=== PATIENT | female | born 1940 | race Caucasian/White ===

== ENCOUNTER → 2020-08-02 | Outpatient (CLI) | payer OTHER ==
[~2020-08-02] MED LIST: ACET325 PO; ALEN70 PO; ASPI81CH PO; ATOR40TA PO; Amlodipine Besyl5 MG PO; BENA20 PO; CALCIUM; CLOP75 PO; CODACE30 PO; DOCU100 PO; ERGO50000; HYDCHL25 PO; Metoprolol Tart25 MG PO; NABU500 PO; WARF2 PO
== END | disposition home or self-care (01) ==
LOC: LAB SHORT 13:52 → LAB 13:52
DX: D48.5 Neoplasm of uncertain behavior of skin (principal)
CPT/HCPCS: 88305

== ENCOUNTER → 2020-11-07 | Outpatient (CLI) | payer OTHER | LOC: LAB SHORT 15:54 → LAB 15:54 | DX: D48.5 Neoplasm of uncertain behavior of skin (principal) | CPT/HCPCS: 88305 ==

== ENCOUNTER 2021-02-28 18:28 | Inpatient (IN) | payer OTHER ==
[~2021-02-28] VITALS: Ht 157.5 cm; Wt 112.7 kg
[~2021-02-28 18:28] MED LIST changes: -Coumadin2 MG PO; -ELIQUIS2.5 MG PO; -EUTHYROX50 MC1 PO; -METOPROLOL SUCC25 MG PO; -VITAMIN B125000 MC1 PO; -VITAMIN D310 MC4 PO
[2021-02-28] MEDS ORDERED: EUTHYROX50 MC1 PO (18:40)
[2021-02-28 19:12] LABS: BASOPHILS ABSOLUTE AUTO 0.03 K/mm3 (0.00-0.23); BASOPHILS PERCENT AUTO 0 % (0-2); EOSINOPHILS ABSOLUTE AUTO 0.06 K/mm3 (0.00-0.68); EOSINOPHILS PERCENT AUTO 1 % (0-6); Hematocrit 38.1 % (33.0-51.0); Hemoglobin 12.3 g/dL (11.5-16.0); IMMATURE GRAN ABSOLUTE AUTO 0.03 K/mm3 (0.00-0.10); IMMATURE GRAN PERCENT AUTO 0 % (0-1); LYMPHOCYTES ABSOLUTE AUTO 1.22 K/mm3 (0.84-5.20); LYMPHOCYTES PERCENT AUTO 15 % (21-46); MONOCYTES ABSOLUTE AUTO 0.66 K/mm3 (0.16-1.47); MONOCYTES PERCENT AUTO 8 % (4-13); Mean Corpuscular HGB 31.4 pg (26.0-34.0); Mean Corpuscular HGB Conc 32.3 g/dL (31.5-36.5); Mean Corpuscular Volume 97 fL (80-100); Mean Platelet Volume 11.1 fL (9.1-12.4); NEUTROPHILS ABSOLUTE AUTO 6.01 K/mm3 (1.96-9.15); NEUTROPHILS PERCENT AUTO 75 % (41-73); Platelet Count 242 K/mm3 (150-400); RDW Coefficient Variation 15.2 % (11.7-14.2); RDW Standard Deviation 54.5 fL (35.1-46.3); Red Blood Cell Count 3.92 M/mm3 (3.80-5.20); White Blood Cell Count 8.01 K/mm3 (4.00-11.30)
[2021-02-28 19:28] LABS: International Normalized Ratio 2.88; Prothrombin Time Results 29.3 Sec (9.7-11.5)
[2021-02-28 19:56] LABS: SARS-Cov-2 (COVID-19) PCR, MMC NEGATIVE (NEGATIVE)
[2021-02-28] MEDS ORDERED: METOPROLOL SUCC25 MG PO (20:38)
[2021-02-28 20:41] LABS: Anion Gap 11 mmol/L (6-16); Blood Urea Nitrogen 22 mg/dL (8-24); Bun/Creatinine Ratio 19.3 (12.0-20.0); CO2, Blood 21 mmol/L (21-32); Chloride, Blood 110 mmol/L (98-108); Creatinine, Blood 1.14 mg/dL (0.40-1.00); Free Thyroxine 1.51 ng/dL (0.70-1.60); Glomerular Filtration Rate 46 (60-); Glucose, Blood 92 mg/dL (70-99); Magnesium, Blood 1.9 mg/dL (1.6-2.4); Potassium, Blood 4.3 mmol/L (3.5-5.5); Sodium, Blood 142 mmol/L (136-145); Troponin I <0.015 ng/mL (0.000-0.040)
[2021-02-28 20:43] LABS: Triiodothyronine, Free 1.91 pg/mL (2.18-3.98)
[2021-02-28] MEDS ORDERED: Coumadin2 MG PO (21:02)
[2021-02-28] MEDS ORDERED: VITAMIN D310 MC4 PO (23:20)
[2021-02-28] MEDS ORDERED: VITAMIN B125000 MC1 PO (23:20)
[2021-03-01 05:26] LABS: BASOPHILS ABSOLUTE AUTO 0.02 K/mm3 (0.00-0.23); BASOPHILS PERCENT AUTO 0 % (0-2); EOSINOPHILS ABSOLUTE AUTO 0.08 K/mm3 (0.00-0.68); EOSINOPHILS PERCENT AUTO 1 % (0-6); Hematocrit 33.7 % (33.0-51.0); Hemoglobin 10.9 g/dL (11.5-16.0); IMMATURE GRAN ABSOLUTE AUTO 0.02 K/mm3 (0.00-0.10); IMMATURE GRAN PERCENT AUTO 0 % (0-1); LYMPHOCYTES ABSOLUTE AUTO 1.42 K/mm3 (0.84-5.20); LYMPHOCYTES PERCENT AUTO 23 % (21-46); MONOCYTES ABSOLUTE AUTO 0.56 K/mm3 (0.16-1.47); MONOCYTES PERCENT AUTO 9 % (4-13); Mean Corpuscular HGB 31.5 pg (26.0-34.0); Mean Corpuscular HGB Conc 32.3 g/dL (31.5-36.5); Mean Corpuscular Volume 97 fL (80-100); Mean Platelet Volume 11.6 fL (9.1-12.4); NEUTROPHILS ABSOLUTE AUTO 3.97 K/mm3 (1.96-9.15); NEUTROPHILS PERCENT AUTO 66 % (41-73); Platelet Count 238 K/mm3 (150-400); RDW Coefficient Variation 15.3 % (11.7-14.2); RDW Standard Deviation 55.2 fL (35.1-46.3); Red Blood Cell Count 3.46 M/mm3 (3.80-5.20); White Blood Cell Count 6.07 K/mm3 (4.00-11.30)
--- NOTE | 2021-03-01 05:43 | NUR ---
SHIFT SUMMARY ASSUMED CARE OF PT AT 2300 FROM ED. PT IS A/OX4. HEART SOUNDS BABATUNDE, PT TELE RUNNING SINUS BABATUNDE @ 30. PT DIPPED DOWN TO 25 BPM, PT WAS ASYMPTOMATIC. LUNG SOUNDS HAVE CRACKLES AT THE BASES. PT WAS STRICTLY BEDREST T/O THE SHIFT. PT NPO AT MIDNIGHT FOR PROCEDURE IN AM. NEW POWEGLIDE PLACED. CALL LIGHT IN REACH, BED IN LOWEST POSTION.
[2021-03-01 05:49] LABS: International Normalized Ratio 3.12; Prothrombin Time Results 31.6 Sec (9.7-11.5)
[2021-03-01 05:57] LABS: Alanine Aminotransfer (ALT/SGP 24 U/L (12-78); Albumin/Globulin Ratio 0.9 (0.8-1.8); Alk Phos 75 U/L (50-136); Anion Gap 8 mmol/L (6-16); Aspartate Aminotrans (AST/SGOT 29 U/L (12-37); Bilirubin, Total 0.4 mg/dL (0.1-1.0); Blood Urea Nitrogen 21 mg/dL (8-24); Bun/Creatinine Ratio 17.4 (12.0-20.0); CO2, Blood 25 mmol/L (21-32); Calcium, Blood 8.8 mg/dL (8.5-10.1); Chloride, Blood 110 mmol/L (98-108); Creatinine, Blood 1.21 mg/dL (0.40-1.00); Globulin, Blood 3.2 g/dL (2.2-4.0); Glomerular Filtration Rate 43 (60-); Glucose, Blood 86 mg/dL (70-99); Sodium, Blood 143 mmol/L (136-145); Total Protein, Blood 6.2 g/dL (6.4-8.2); Troponin I <0.015 ng/mL (0.000-0.040)
--- NOTE | 2021-03-01 10:47 | NUR ---
Dr. Chase here to round on pt. Zoll monitor at the bedside. Zoll patches will be applied on pt until she can have her pacemaker surgery completed.
[2021-03-01 13:46] LABS: International Normalized Ratio 2.63
[2021-03-01 14:13] LABS: Prothrombin Time Results 26.9 Sec (9.7-11.5)
--- NOTE | 2021-03-01 18:08 | NUR ---
PT PLEASANT TODAY. SHE WAS POSTPONED TO TOMORROW ANDERS AM FOR PACER . CONTINUES TO BE AT BABATUNDE AROUND 30 BPM. DENIES SYMPTOMS. WE HAVE NOT GOTTEN HER UP EVEN FOR BATHROOM TODAY. ZOLE PATCH PADS IN PLACE FOR EMERGENCY. SHE HAS BEEN TALKING ON FLOOR. NO NEW CONCRNS NOTED. INR SLOWLY COMING DOWN. BED IN LOW POSITION, CALL LITE IN REACH, CALLS APPROP
[2021-03-02 04:50] LABS: BASOPHILS ABSOLUTE AUTO 0.03 K/mm3 (0.00-0.23); BASOPHILS PERCENT AUTO 1 % (0-2); EOSINOPHILS ABSOLUTE AUTO 0.11 K/mm3 (0.00-0.68); EOSINOPHILS PERCENT AUTO 2 % (0-6); Hematocrit 33.1 % (33.0-51.0); Hemoglobin 10.7 g/dL (11.5-16.0); IMMATURE GRAN ABSOLUTE AUTO 0.02 K/mm3 (0.00-0.10); IMMATURE GRAN PERCENT AUTO 0 % (0-1); LYMPHOCYTES ABSOLUTE AUTO 1.23 K/mm3 (0.84-5.20); LYMPHOCYTES PERCENT AUTO 23 % (21-46); MONOCYTES PERCENT AUTO 9 % (4-13); Mean Corpuscular HGB 31.4 pg (26.0-34.0); Mean Corpuscular HGB Conc 32.3 g/dL (31.5-36.5); Mean Corpuscular Volume 97 fL (80-100); Mean Platelet Volume 11.5 fL (9.1-12.4); NEUTROPHILS ABSOLUTE AUTO 3.57 K/mm3 (1.96-9.15); NEUTROPHILS PERCENT AUTO 65 % (41-73); Platelet Count 223 K/mm3 (150-400); RDW Coefficient Variation 15.2 % (11.7-14.2); RDW Standard Deviation 54.3 fL (35.1-46.3); Red Blood Cell Count 3.41 M/mm3 (3.80-5.20); White Blood Cell Count 5.46 K/mm3 (4.00-11.30)
[2021-03-02 05:04] LABS: International Normalized Ratio 1.57; Prothrombin Time Results 16.5 Sec (9.7-11.5)
[2021-03-02 05:09] LABS: Bun/Creatinine Ratio 17.5 (12.0-20.0); Calcium, Blood 8.2 mg/dL (8.5-10.1); Creatinine, Blood 1.2 mg/dL (0.40-1.00); Potassium, Blood 4.1 mmol/L (3.5-5.5)
--- NOTE | 2021-03-02 05:33 | NUR ---
SHIFT SUMMARY ASSUMED CARE OF PT AT 1900. PT IS A/OX4. HEART SOUNDS BABATUNDE. TELE SHOWS SECOND DEGREE BLOCK @ 30. PT REMAINED IN THE 30'S T/O THE NIGHT. LUNG SOUNDS HAVE CRACKLES IN THE BASES. PT WAS INCONTINENT OF URINE. PT HAS NO NEW COMPLAINTS. CALL LIGHT IN REACH, BED IN LOWEST POSTION.
--- NOTE | 2021-03-02 13:57 | NUR ---
PT HAS RETURNED FROM GETTING A LEFT DUAL CHAMBER PACEMAKER INSTALLED TODAY. NURSE REVIEWED RESTRICTIONS WITH PT. VITAL SIGNS ARE BEING TAKEN EVERY 15 MINUTES FOR THE FIRST HOUS, THEN EVERY 30 MINUTES THE SECOND HOUR, AND ONCE ON THE THIRD HOUR.
--- NOTE | 2021-03-02 18:46 | NUR ---
Shift Summary Pt had placement of Left Dual Chamber Pacemaker today. VS: Spo2@96 HR:74; RR:20,BP 160/77. PT HAS RECIEVED POST-OP TEAACHING WHICH NEEEDS TO BE REINFORCED FOR POSSIBLE DISCHARGE TOMORROW.
[2021-03-03 04:58] LABS: International Normalized Ratio 1.16; Prothrombin Time Results 12.4 Sec (9.7-11.5)
--- NOTE | 2021-03-03 07:24 | NUR ---
SUMMARY PT IS A&O X4, VSS, ON RA. LEFT ARM REMAINS IN SLING, ELAVATED ON A PILLOW. PRESSURE DRSG WAS REMOVED BY THIS AM. TEGADERM WAS PLACED OVER PREVIOUS PACER DRSG. PT WILL RECIEVE HER 3RD DOSE OF IV ANCEF THIS AM. CHEST XRAY & INTEROGATION SCHEDULED FOR THIS AM. TYLENOL GIVEN TO PT PER REQUEST X1. CALL LIGHT IN REACH, REPORT GIVEN TO DAY RN.
--- NOTE | 2021-03-03 18:57 | NUR ---
PT TRANSFERRED eARLY THIS AFTERNOON. REPORT WAS GIVEN.
--- NOTE | 2021-03-03 20:19 | NUR ---
PT HAS VASCULAR ACCESS ON UPPER LIMBS BILATERALLY. BOTH WERE ASSESSED AND FLUSHED WITH 5CC NORMAL SALINE IN EACH PORT. BOTH ARE PATENT AND FUNCTIONING WELL.
--- NOTE | 2021-03-04 04:55 | NUR ---
JANIE IS A PLEASANT PATIENT. VERY ALERT, ORIENTED, AND COOPERATIVE. SHE HAS SPENT THE EARLIER PART OF THE EVENING WATCHING MOVIES ON THE TABLET. SHE HAS HAD A QUIET NIGHT, SLEEPING WELL, AND HAS ONLY GOTTEN UP A COUPLE OF TIMES TO VOID IN THE BEDSIDE COMMODE. SHE NEEDS A STANDBY ASSIST FOR THIS, BUT DOES WELL. SHE STILL HAS ATTENDS ON FOR BACKUP, AND THESE GIVE HER SOME TROUBLE GETTING THEM OFF AND BACK ON.
--- NOTE | 2021-03-04 06:39 | NUR ---
ATTEMPTED TO DRAW AM LABS FROM PICC LINE BUT WAS UNSUCCESSFUL FROM BOTH HUBS. FLUSHED WITH 10CC'S NS PRIOR AND AFTER. LAB TO SEND SOMEONE ELSE TO DO A STICK.
[2021-03-04 09:15] LABS: International Normalized Ratio 1.08; Prothrombin Time Results 11.6 Sec (9.7-11.5)
--- NOTE | 2021-03-04 10:44 | NUR ---
pt blood drawn with 22g, blood sent to lab
--- NOTE | 2021-03-04 11:33 | NUR ---
PT STATES THAT SHE IS HAVING NAUSEA AND A HEADACHE 7/10 PAIN. PT STATES THAT SHE FEELS LIKE SHE NEEDS TO "BELCH" DUE TO THE NAUSEA. ZOFRAN GIVEN IV. PT ENCOURAGED TO REPOSITION. OFFERED BEVERAGE. PT LYING NOW. CALL LIGHT AT SIDE.
[2021-03-04] MEDS ORDERED: ELIQUIS2.5 MG PO (13:01)
--- NOTE | 2021-03-04 14:21 | NUR ---
DISCHARGE INSTRUCTIONS GIVEN TO PT. PT VERBALIZED NEED FOR FOLLOW UP WITH NEW PCP WELL FOLLOW UP IN ONE WEEK WITH [facility]. PT WILL CONTACT HUSEYIN SOSA AT [facility] TO SCHEDULE NEW PT APPT WITH PCP. PT D/C AT 1415. PT'S FRIEND RISSA PICKED PT UP AND WAS TAKING HER HOME. PT STATED HER SON AND DAUGHTER WILL BE COMING BY [place] TO HELP PT GET SITUATED.
--- NOTE | 2021-03-05 19:21 | NUR ---
POST-DISCHARGE NOTE - CALL BACK PT CALLED WITH QUESTIONS REGARDING DISCHARGE INSTRUCTIONS AND PRESCRIPTIONS. PT WAS EXPECTING AN ANTIBIOTIC BUT DID NOT RECIEVE ONE UPON DISCHARGE. THIS RN REVIEWED DISCHARGE NOTE FROM PHYSICIAN AND DISCHARGE INSTRUCTIONS FROM RN. CALLED PHYSICIAN AND GOT V/O AND CONFIRMATION FOR MISSING ABX. CEPHALEXIN 500MG PO BID FOR 10 DOSES CALLED INTO [facility] IN [place] VIA VOICEMAIL THEY WERE CLOSED FRIDAY. PT & DAUGHTER INTEND TO SHOT DROPPER FRIDAY, PER DR. PENA IT WAS A PROPHALATIC ABX AND HAD NOT YET STARTED REGIMEN.
== END 2021-03-04 14:15 | disposition home or self-care (01) | DRG 243 ==
LOC: ER 18:28 → SURS 18:29 → ER 21:33 → SURS 21:33 → ORSCIP 03-03 13:06
PROVIDERS: Internal Medicine Cardiovascular Disease; Student in an Organized Health Care Education/Training Program; ADMIT Internal Medicine
PROC: 0JH606Z Insertion of Pacemaker, Dual Chamber into Chest Subcutaneous Tissue and Fascia, Open Approach (ICD-10-PCS; principal; 2021-03-02)
PROC: 02H60JZ Insertion of Pacemaker Lead into Right Atrium, Open Approach (ICD-10-PCS; 2021-03-02)
PROC: 02HK3JZ Insertion of Pacemaker Lead into Right Ventricle, Percutaneous Approach (ICD-10-PCS; 2021-03-02)
DX: I44.2 Atrioventricular block, complete (principal); I13.0 Hypertensive heart and chronic kidney disease with heart failure and stage 1 through stage 4 chronic kidney disease, or unspecified chronic kidney disease; Z68.41 Body mass index [BMI] 40.0-44.9, adult; I48.0 Paroxysmal atrial fibrillation; N18.30 Chronic kidney disease, stage 3 unspecified; I49.5 Sick sinus syndrome; E03.9 Hypothyroidism, unspecified; Z79.899 Other long term (current) drug therapy; E66.9 Obesity, unspecified; M81.0 Age-related osteoporosis without current pathological fracture; Z88.8 Allergy status to other drugs, medicaments and biological substances; Z98.890 Other specified postprocedural states; Z98.49 Cataract extraction status, unspecified eye; E78.5 Hyperlipidemia, unspecified; Z85.828 Personal history of other malignant neoplasm of skin; I25.2 Old myocardial infarction; I50.9 Heart failure, unspecified
CPT/HCPCS: 33208; 33210; 71045; 71046; 76937; 80048; 80053; 83735; 83880; 84439; 84481; 84484; 85025; 85610; 85730; 86850; 86900; 86901; 93005; 93010; 93306; 94760; 99152; 99153; 99285-25; A9270; C1751; C1781; C1785; C1894; C1898; G0378; J0690; J1644; J2250; J2405; J3010; J7030; J7040; Q9967; U0004

== ENCOUNTER → 2021-02-28 | Outpatient (CLI) | payer OTHER ==
[~2021-02-28] MED LIST changes: -BENA20 PO; +BENAZEPRIL HCL40 M1 PO; +Coumadin2 MG PO; +ELIQUIS2.5 MG PO; +EUTHYROX50 MC1 PO; +METOPROLOL SUCC25 MG PO; +VITAMIN B125000 MC1 PO; +VITAMIN D310 MC4 PO
[2021-02-28 18:20] LABS: BASOPHILS ABSOLUTE AUTO 0.03 K/mm3 (0.00-0.23); BASOPHILS PERCENT AUTO 0 % (0-2); EOSINOPHILS ABSOLUTE AUTO 0.06 K/mm3 (0.00-0.68); EOSINOPHILS PERCENT AUTO 1 % (0-6); Hematocrit 37.4 % (33.0-51.0); Hemoglobin 12.1 g/dL (11.5-16.0); IMMATURE GRAN ABSOLUTE AUTO 0.02 K/mm3 (0.00-0.10); IMMATURE GRAN PERCENT AUTO 0 % (0-1); LYMPHOCYTES ABSOLUTE AUTO 1.26 K/mm3 (0.84-5.20); LYMPHOCYTES PERCENT AUTO 15 % (21-46); MONOCYTES PERCENT AUTO 7 % (4-13); Mean Corpuscular HGB 31.2 pg (26.0-34.0); Mean Corpuscular HGB Conc 32.4 g/dL (31.5-36.5); Mean Corpuscular Volume 96 fL (80-100); Mean Platelet Volume 10.9 fL (9.1-12.4); NEUTROPHILS ABSOLUTE AUTO 6.23 K/mm3 (1.96-9.15); NEUTROPHILS PERCENT AUTO 76 % (41-73); Platelet Count 252 K/mm3 (150-400); RDW Coefficient Variation 15.3 % (11.7-14.2); RDW Standard Deviation 54.5 fL (35.1-46.3); Red Blood Cell Count 3.88 M/mm3 (3.80-5.20)
[2021-02-28 18:38] LABS: Alanine Aminotransfer (ALT/SGP 19 U/L (12-78); Albumin, Blood 3.5 g/dL (3.4-5.0); Alk Phos 89 U/L (40-126); Anion Gap 11 mmol/L (6-16); Aspartate Aminotrans (AST/SGOT 28 U/L (12-37); Bilirubin, Total 0.5 mg/dL (0.1-1.0); Blood Urea Nitrogen 20 mg/dL (8-24); CO2, Blood 23 mmol/L (21-32); Chloride, Blood 107 mmol/L (98-108); Creatinine, Blood 1.43 mg/dL (0.40-1.00); Globulin, Blood 3.6 g/dL (2.2-4.0); Glomerular Filtration Rate 35 (60-); Glucose, Blood 105 mg/dL (70-99); Potassium, Blood 4.2 mmol/L (3.5-5.5); Sodium, Blood 141 mmol/L (136-145); Thyroid Stimulating Hormone 4.532 uIU/mL (0.360-4.800); Total Protein, Blood 7.1 g/dL (6.4-8.2)
[2021-02-28 18:39] LABS: Troponin I <0.017 ng/mL (0.000-0.040)
== END | disposition home or self-care (01) ==
LOC: LAB SHORT 18:16 → LAB 18:16
PROVIDERS: Chiropractor
DX: I44.2 Atrioventricular block, complete (principal); R53.83 Other fatigue
CPT/HCPCS: 80053; 83880; 84443; 84484; 85025